=== PATIENT | female | born 1980 | race Hispanic/Latino ===

== ENCOUNTER 2019-07-29 05:48 | Day surgery (SDC) | payer OTHER ==
[2019-07-28 15:08] VITALS: BP 95/66
[~2019-07-29] VITALS: Ht 160 cm; Wt 70.2 kg
[2019-07-29] VITALS (14 sets, daily range): BP systolic 95–137; BP diastolic 64–80
[~2019-07-29 05:48] MED LIST: ASPI-556 PO; CANA300T PO; INSU100V12 SQ; LISI-613 PO; METF-446 PO; NEBI10TA PO
[2019-07-29] MEDS: CEFAZOLIN SODIUM 1 GM VIAL IVP SCH ×2 (06:00→10:30)
[2019-07-29] MEDS ORDERED: SODIUM CHLORIDE 0.9% 1000ML 1,000 ML IV ONE (07:42)
--- NOTE | 2019-07-29 07:53 | NUR ---
SX LEFT SHOULDER WIPED WITH DAE BY BETSY
[2019-07-29] MEDS ORDERED: LACTATED RINGERS 1000ML 1,000 ML IV SCH (08:00)
[2019-07-29] MEDS ORDERED: PROPOFOL 10 MG/ML 20ML VIAL IV ONE (10:16)
[2019-07-29] MEDS ORDERED: SUCCINYLCHOLINE CHLORIDE 20 MG/ML 10 ML VIAL ONE (10:17)
[2019-07-29] MEDS ORDERED: ROCURONIUM 10MG/1ML SYR 10 MG/ML ML ONE (10:17)
[2019-07-29] MEDS ORDERED: LIDOCAINE PF 2% 5ML ABBOJECT ONE (10:17)
[2019-07-29] MEDS ORDERED: MIDAZOLAM HCL 1 MG/ML 2ML VIAL ONE (10:18)
[2019-07-29] MEDS ORDERED: FENTANYL CITRATE PF 50 MCG/1 ML 2ML VIAL ONE (10:18)
[2019-07-29] MEDS ORDERED: ROPIVACAINE 0.5% 5MG/ML 30ML IJ ONE (10:20)
[2019-07-29] MEDS ORDERED: KETAMINE 50MG/ML SYRINGE 50 MG/ML DISP.SYRIN IV ONE (10:32)
[2019-07-29] MEDS ORDERED: GLYCOPYRROLATE 1 MG/5 ML SYRINGE ONE (10:33)
[2019-07-29] MEDS ORDERED: ONDANSETRON HCL 4 MG/2 ML VIAL ONE (10:54)
[2019-07-29] MEDS ORDERED: NEOSTIGMINE 5MG/5ML SYR IV ONE (11:52)
--- NOTE | 2019-07-29 13:10 | NUR ---
PATIENT ARRIVED TO DAY PATIENT VIA STRETCHER BY JOSÉ MIGUEL NDIAYE. PATIENT AAOX3, RESPIRATIONS UNLABORED, VITAL SIGNS STABLE, DENIES ANY PAIN AT THIS TIME. SLING TO LEFT ARM, DRESSINGS (2X2) X [address], DRY/INTACT.
--- NOTE | 2019-07-29 13:50 | NUR ---
DISCHARGE INSTRUCTIONS PROVIDED TO PATIENT'S SPOUSE (VIA TELEPHONE). PROVIDED FOLLOW UP APPOINTMENT AND AFTER CARE DISCHARGE INSTRUCTIONS WELL. ALL QUESTIONS/CONCERNS ADDRESSED.
--- NOTE | 2019-07-29 14:00 | NUR ---
PATIENT DISCHARGED FROM FACILITY VIA WHEELCHAIR BY NURSE. PATIENT ASSISTED INTO PRIVATE VEHICLE DRIVEN BY SPOUSE.
== END 2019-07-29 14:00 | disposition home or self-care (01) ==
LOC: DAH 05:48
PROVIDERS: ATTEND Orthopaedic Surgery
DX: M75.02 Adhesive capsulitis of left shoulder (principal); E11.9 Type 2 diabetes mellitus without complications; I10 Essential (primary) hypertension; E78.00 Pure hypercholesterolemia, unspecified; Z85.528 Personal history of other malignant neoplasm of kidney
CPT/HCPCS: 29825; 29826; 64415; 76942; 82948 ×2; A4213; A4215; A4221; A4222; A4223; A4248; A4600; A4649 ×5; A4663; A4930; A5120; A6207; G0168; J0330; J0690; J2001; J2250; J2405; J2704; J2710; J2795; J3010; J3490 ×2; J7030 ×2; J7120